=== PATIENT | female | born 1950 | race African-American/Black ===

== ENCOUNTER 2021-03-22 15:47 | Emergency (ER) | payer MEDICARE, MEDICAID ==
[~2021-03-22] VITALS: Ht 162.6 cm; Wt 147.0 kg
[2021-03-22] MEDS ORDERED: ACETAMINOPHEN 325MG TABLET PO ONE (17:00)
[2021-03-22 18:00] VITALS: BP 130/67
== END 2021-03-22 20:15 | disposition home or self-care (01) ==
LOC: ER 15:47
DX: M79.604 Pain in right leg (principal); R60.9 Edema, unspecified; E11.9 Type 2 diabetes mellitus without complications; I10 Essential (primary) hypertension; F17.200 Nicotine dependence, unspecified, uncomplicated; Z90.49 Acquired absence of other specified parts of digestive tract
CPT/HCPCS: 93971; 99284

== ENCOUNTER 2021-08-27 13:26 | Inpatient (IN) | payer MEDICARE, MEDICAID ==
[~2021-08-27] VITALS: Ht 162.6 cm; Wt 66.7 kg
[2021-08-27 20:23] LABS: BASOPHILS % 0.4 % (0.0-2.0); EOSINOPHILS % 0.6 % (0.0-5.0); HEMATOCRIT. 36.8 % (36.0-48.0); HEMOGLOBIN. 12.1 g/dL (12.0-16.0); LYMPHOCYTES % 23.1 % (20.0-50.0); MEAN CORPUSCULAR HEMOGLOBIN 26.1 pg (28.0-32.0); MEAN CORPUSCULAR VOLUME 79.1 fL (81.0-99.0); MEAN PLATELET VOLUME 8.5 fl (7.4-10.4); MONOCYTES % 5.7 % (2.0-8.0); NEUTROPHILS % 70.2 % (40.0-76.0); PLATELET 349 x1000/uL (130-400); RED BLOOD CELL COUNT 4.65 mill/uL (4.2-5.4); RED CELL DISTRIBUTION WIDTH 15.6 % (11.6-14.6)
[2021-08-27 20:36] LABS: CHLORIDE 105 mEq/L (98-107)
[2021-08-27] MEDS ORDERED: SODIUM CHLORIDE 0.9% 1,000 ML IV ONE (20:45)
[2021-08-27 21:11] LABS: CLARITY URINE CLOUDY (CLEAR); COLOR URINE DARK YELLOW (YELLOW); KETONES URINE TRACE (NEGATIVE); LEUKOCYTE ESTERASE URINE 2+ (NEGATIVE); NITRITE URINE POSITIVE (NEGATIVE); OCCULT BLOOD URINE NEGATIVE (NEGATIVE); PH URINE 5.5 (4.5-8.0); PROTEIN URINE TRACE (NEGATIVE); SPECIFIC GRAVITY URINE 1.025 (1.005-1.030)
[2021-08-27] MEDS ORDERED: CEFTRIAXONE 1 G PREMIX 50 ML IV ONE (21:30)
[2021-08-27] MEDS ORDERED: MORPHINE SULFATE 4 MG/ML CPJ (NOT FOR IM USE) IV STA (23:43)
[2021-08-27] MEDS ORDERED: ONDANSETRON HCL 4MG/2ML INJ IV STA (23:43)
[2021-08-28] VITALS (7 sets, daily range): BP systolic 95–188; BP diastolic 41–89
[2021-08-28] MEDS ORDERED: ONDANSETRON HCL 4MG/2ML INJ IV PRN (00:45)
[2021-08-28] MEDS ORDERED: CLONIDINE 0.1MG TABLET PO PRN (01:00)
[2021-08-28] MEDS ORDERED: NALOXONE HCL 0.4 MG/ML 1ML VIAL IV PRN (03:15)
[2021-08-28] MEDS: HYDROCODONE/ACETAMINOPHEN 5/325MG TABLET PO PRN ×2 (05:17→21:41)
[2021-08-28] MEDS ORDERED: METF-414 PO (05:55)
[2021-08-28] MEDS ORDERED: CEFTRIAXONE 1 G PREMIX 50 ML IV SCH (09:00)
[2021-08-28] MEDS: ASPIRIN 81MG TABLET PO SCH (10:07)
[2021-08-28] MEDS: ENOXAPARIN 30MG/0.3ML SYR SUBCUT SCH ×2 (10:08→21:41)
[2021-08-28 10:17] LABS: BASOPHILS % 0.4 % (0.0-2.0); EOSINOPHILS % 1.1 % (0.0-5.0); HEMATOCRIT. 30.9 % (36.0-48.0); LYMPHOCYTES % 22.4 % (20.0-50.0); MEAN CORPUSCULAR HEMOGLOBIN 25.6 pg (28.0-32.0); MEAN CORPUSCULAR VOLUME 79.4 fL (81.0-99.0); MEAN PLATELET VOLUME 8.4 fl (7.4-10.4); NEUTROPHILS % 67.1 % (40.0-76.0); PLATELET 297 x1000/uL (130-400); RED CELL DISTRIBUTION WIDTH 15.5 % (11.6-14.6)
[2021-08-28 10:35] LABS: CHLORIDE 108 mEq/L (98-107)
[2021-08-28] MEDS: PIPERACILLIN/TAZOBACTAM 3.375 G in DEXTROSE 5% WATER 50 ML IV SCH ×2 (14:46→21:40)
[2021-08-29] VITALS: BP 123/51
[2021-08-29] MEDS ORDERED: CEFTRIAXONE 1,000 MG in DEXTROSE 5% WATER 50 ML IV SCH
[2021-08-29 04:00] VITALS: BP 154/61
[2021-08-29] MEDS: PIPERACILLIN/TAZOBACTAM 3.375 G in DEXTROSE 5% WATER 50 ML IV SCH ×3 (06:01→21:21)
[2021-08-29 08:00] VITALS: BP 130/48
[2021-08-29] MEDS: ASPIRIN 81MG TABLET PO SCH (08:35)
[2021-08-29] MEDS: ENOXAPARIN 30MG/0.3ML SYR SUBCUT SCH (08:36)
[2021-08-29 11:45] LABS: BASOPHILS % 0.4 % (0.0-2.0); EOSINOPHILS % 5.4 % (0.0-5.0); HEMATOCRIT. 32.2 % (36.0-48.0); HEMOGLOBIN. 10.4 g/dL (12.0-16.0); LYMPHOCYTES % 24.6 % (20.0-50.0); MEAN CORPUSCULAR HEMOGLOBIN 25.7 pg (28.0-32.0); MEAN CORPUSCULAR VOLUME 79.1 fL (81.0-99.0); MEAN PLATELET VOLUME 8.5 fl (7.4-10.4); MONOCYTES % 7.4 % (2.0-8.0); NEUTROPHILS % 62.2 % (40.0-76.0); PLATELET 317 x1000/uL (130-400); RED BLOOD CELL COUNT 4.07 mill/uL (4.2-5.4); RED CELL DISTRIBUTION WIDTH 15.7 % (11.6-14.6)
[2021-08-29 12:00] VITALS: BP 146/69
[2021-08-29 16:06] VITALS: BP 123/50
[2021-08-29 20:00] VITALS: BP 137/78
[2021-08-30] VITALS: BP 129/55
[2021-08-30 04:00] VITALS: BP 133/46
[2021-08-30 08:00] VITALS: BP 126/41
[2021-08-30] MEDS ORDERED: ENOXAPARIN 40MG/0.4ML SYR SUBCUT SCH (09:00)
[2021-08-30] MEDS: ASPIRIN 81MG TABLET PO SCH (09:29)
[2021-08-30 12:00] VITALS: BP 140/60
[2021-08-30] MEDS: PIPERACILLIN/TAZOBACTAM 3.375 G in DEXTROSE 5% WATER 50 ML IV SCH (14:48)
[2021-08-30 16:00] VITALS: BP 130/45
[2021-08-30] MEDS ORDERED: LEVO500T89 MT (16:24)
[2021-08-30] MEDS ORDERED: METR-167 PO (16:24)
[2021-08-30 17:55] VITALS: BP 130/45
== END 2021-08-30 18:35 | disposition home or self-care (01) | DRG 690 ==
LOC: ER 13:26 → 6EST 08-28 00:47 → ENRESERV 08-28 03:21
PROVIDERS: ADMIT Family Medicine Adult Medicine; ATTEND Family Medicine Adult Medicine
DX: N39.0 Urinary tract infection, site not specified (principal); K57.32 Diverticulitis of large intestine without perforation or abscess without bleeding; R65.10 Systemic inflammatory response syndrome (SIRS) of non-infectious origin without acute organ dysfunction; K44.9 Diaphragmatic hernia without obstruction or gangrene; D25.9 Leiomyoma of uterus, unspecified; E11.9 Type 2 diabetes mellitus without complications; E66.01 Morbid (severe) obesity due to excess calories; I10 Essential (primary) hypertension; Z79.82 Long term (current) use of aspirin; N83.202 Unspecified ovarian cyst, left side; Z68.25 Body mass index [BMI] 25.0-25.9, adult; Z90.49 Acquired absence of other specified parts of digestive tract
CPT/HCPCS: 36415; 74176; 76856; 80048; 80053; 81003; 82962; 85025; 87077; 87186; 93005; 99285; C1893; J0696; J1650; J2405; J2543; J7030; J7060

== ENCOUNTER 2022-04-22 14:46 | Emergency (ER) | payer MEDICARE, MEDICAID ==
[~2022-04-22] VITALS: Ht 167.6 cm; Wt 105.0 kg
[~2022-04-22 14:46] MED LIST: LEVO500T90 MT; METF-414 PO; METR-167 PO
[2022-04-22 14:51] VITALS: BP 120/75
[2022-04-22 16:27] LABS: CLARITY URINE CLOUDY (CLEAR); COLOR URINE YELLOW (YELLOW); KETONES URINE TRACE (NEGATIVE); LEUKOCYTE ESTERASE URINE 3+ (NEGATIVE); NITRITE URINE POSITIVE (NEGATIVE); OCCULT BLOOD URINE 2+ (NEGATIVE); PROTEIN URINE 1+ (NEGATIVE); SPECIFIC GRAVITY URINE 1.023 (1.005-1.030)
[2022-04-22] MEDS ORDERED: CEFP200T13 MT (16:36)
[2022-04-22] MEDS ORDERED: LIDOCAINE HCL 1% 20ML VIAL (Pyxis) INJ INFIL ONE (16:45)
[2022-04-22] MEDS ORDERED: CEFTRIAXONE SODIUM 1 G/VIAL IM ONE (16:45)
== END 2022-04-22 17:00 | disposition home or self-care (01) ==
LOC: ER 14:50
DX: N39.0 Urinary tract infection, site not specified (principal); E11.9 Type 2 diabetes mellitus without complications; I10 Essential (primary) hypertension
CPT/HCPCS: 81003; 87077; 87086; 87186; 96372; 99283; J0696; J3490

== ENCOUNTER 2022-07-16 13:34 | Emergency (ER) | payer MEDICARE, MEDICAID ==
[~2022-07-16] VITALS: Ht 162.6 cm; Wt 120.0 kg
[~2022-07-16 13:34] MED LIST changes: +CEFP200T13 MT; +LEVO-65 MT; -LEVO500T90 MT
[2022-07-16 16:54] LABS: BASOPHILS % 0.8 % (0.0-2.0); EOSINOPHILS % 0.5 % (0.0-5.0); HEMATOCRIT. 37.5 % (36.0-48.0); HEMOGLOBIN. 12.8 g/dL (12.0-16.0); LYMPHOCYTES % 26.2 % (20.0-50.0); MEAN CORPUSCULAR HEMOGLOBIN 26.7 pg (28.0-32.0); MEAN CORPUSCULAR VOLUME 78.1 fL (81.0-99.0); MEAN PLATELET VOLUME 7.6 fl (7.4-10.4); MONOCYTES % 11.6 % (2.0-8.0); NEUTROPHILS % 60.9 % (40.0-76.0); PLATELET 309 x1000/uL (130-400)
[2022-07-16 17:02] LABS: CHLORIDE 101 mEq/L (98-107)
[2022-07-16] MEDS ORDERED: IBUPROFEN 400MG TABLET PO ONE (18:45)
[2022-07-16 19:54] LABS: CLARITY URINE CLOUDY (CLEAR); COLOR URINE DARK YELLOW (YELLOW); KETONES URINE TRACE (NEGATIVE); LEUKOCYTE ESTERASE URINE 2+ (NEGATIVE); NITRITE URINE POSITIVE (NEGATIVE); OCCULT BLOOD URINE TRACE (NEGATIVE); PH URINE 5.5 (4.5-8.0); PROTEIN URINE 1+ (NEGATIVE); SPECIFIC GRAVITY URINE 1.025 (1.005-1.030)
[2022-07-16] MEDS ORDERED: CIPR500T5 MT (21:10)
[2022-07-16 21:19] VITALS: BP 114/78
== END 2022-07-16 21:22 | disposition home or self-care (01) ==
LOC: ER 13:34
DX: N39.0 Urinary tract infection, site not specified (principal); E11.9 Type 2 diabetes mellitus without complications; I10 Essential (primary) hypertension; Z90.49 Acquired absence of other specified parts of digestive tract
CPT/HCPCS: 36415; 71045; 74176; 80053; 81003; 82962; 85025; 87077; 87186; 93005; 99284; 99285

== ENCOUNTER 2023-10-24 09:31 | Emergency (ER) | payer MEDICARE, MEDICAID ==
[~2023-10-24] VITALS: Ht 162.6 cm; Wt 134.7 kg
[~2023-10-24 09:31] MED LIST changes: +CIPR500T5 MT
[2023-10-24 09:59] VITALS: BP 140/90; PULSE 82; RESP 16; TEMP 98.2; O2SAT 96
[2023-10-24 11:12] LABS: BASOPHILS % 0.6 % (0.0-2.0); EOSINOPHILS % 9.4 % (0.0-5.0); HEMATOCRIT. 35.4 % (36.0-48.0); HEMOGLOBIN. 11.3 g/dL (12.0-16.0); LYMPHOCYTES % 37.2 % (20.0-50.0); MEAN CORPUSCULAR HEMOGLOBIN 26.9 pg (28.0-32.0); MEAN CORPUSCULAR VOLUME 84.1 fL (81.0-99.0); MONOCYTES % 7.3 % (2.0-8.0); NEUTROPHILS % 45.5 % (40.0-76.0); PLATELET 313 x1000/uL (130-400); RED BLOOD CELL COUNT 4.21 mill/uL (4.2-5.4); RED CELL DISTRIBUTION WIDTH 15.9 % (11.6-14.6); WHITE BLOOD COUNT 5.8 x1000/uL (4.5-11.0)
[2023-10-24 11:54] LABS: ALANINE AMINOTRANSFERASE < 7 IU/L (10-49); ALBUMIN 3.8 g/dL (3.2-4.8); ASPARTATE AMINOTRANSFERASE 12 IU/L (<34); BILIRUBIN TOTAL 0.3 mg/dL (0.1-1.0); CALCIUM 9.5 mg/dL (8.7-10.4); CARBON DIOXIDE 25 mEq/L (21-32); CHLORIDE 104 mEq/L (98-107); CREATININE 1.1 mg/dL (0.6-1.0); GLUCOSE 99 mg/dL (70-105); POTASSIUM 3.9 mEq/L (3.5-5.1); PROTEIN TOTAL 7.9 g/dL (6.0-8.3); SODIUM 138 mEq/L (136-145); UREA NITROGEN BLOOD 23 mg/dL (9-23)
[2023-10-24 12:19] LABS: TROPONIN I HIGH SENSITIVITY < 4 ng/L (3.0-34)
[2023-10-24] MEDS ORDERED: BENZ100C86 MT (13:17)
== END 2023-10-24 13:55 | disposition home or self-care (01) ==
LOC: ER 09:49
DX: R00.8 Other abnormalities of heart beat (principal); R05.3 Chronic cough; I49.9 Cardiac arrhythmia, unspecified
CPT/HCPCS: 36415; 71046; 80053; 84484; 85025; 93005; 99285